=== PATIENT | male | born 1985 | race Caucasian/White ===

== ENCOUNTER 2025-02-08 06:29 | Day surgery (SDC) | payer OTHER ==
[2025-02-08 06:55] LABS: PLATELET COUNT,PLT 223.0 K/uL (130-375); RED BLOOD CELL COUNT 5.15 M/uL (4.14-5.76); WHITE BLOOD CELL COUNT,WBC 6.8 K/uL (3.2-11.0)
[2025-02-08] MEDS: Lactated Ringers 1,000 ML IV SCH (07:03)
[2025-02-08] MEDS ORDERED: Ondansetron 4 MG/2 ML SDV ONE (07:08)
[2025-02-08] MEDS ORDERED: Propofol 200 MG/20 ML SDV ONE (07:08)
[2025-02-08] MEDS ORDERED: Dexamethasone 4 MG/ML SDV ONE (07:08)
[2025-02-08] MEDS ORDERED: Succinylcholine 200 MG/10 ML MDV ONE (07:08)
[2025-02-08] MEDS ORDERED: fentaNYL 250 MCG/5 ML SDV ONE (07:08)
[2025-02-08] MEDS ORDERED: Glycopyrrolate 0.2 MG/ML 5 ML MDV ONE (07:08)
[2025-02-08 07:15] LABS: A/G RATIO 1.2 (1.2-2.2); ALANINE AMINOTRANSFERASE,ALT 74 U/L (12-78); ASPARTATE AMNIOTRANSFERASE,AST 34 U/L (15-37); BILIRUBIN TOTAL 0.6 mg/dL (0.2-1.0); BLOOD UREA NITROGEN,BUN 14 mg/dL (7-18); CARBON DIOXIDE,CO2 31 mmol/L (21-32); CHLORIDE,CL 103 mmol/L (100-108); CREATININE 1.1 mg/dL (0.8-1.3); EST CRCL DRUG DOSING (CG) 97.49 mL/min; ESTIMATED GFR 88 mL/min (>60); GLUCOSE RANDOM 88 mg/dL (74-106); POTASSIUM,K 3.8 mmol/L (3.6-5.2); PROTEIN TOTAL,TP 7.3 g/dL (6.4-8.2); SODIUM,NA 141 mmol/L (140-148)
[2025-02-08] MEDS: metroNIDAZOLE/Normal Saline 500 MG in Premix Bag 1 BAG IV ONE (07:24)
[2025-02-08] MEDS: Bupivacaine 0.5%/EPINEPHrine 1:200,000 50 ML MDV ONE (08:25)
[2025-02-08] MEDS ORDERED: fentaNYL 100 MCG/2 ML SDV ONE (09:03)
[2025-02-08] MEDS ORDERED: Ketorolac 30 MG/ML SDV ONE (09:05)
[2025-02-08] MEDS: Acetaminophen/HYDROcodone 325-5 MG Tab PO ONE (11:13)
== END 2025-02-08 14:00 | disposition home or self-care (01) ==
LOC: JP.SDS 06:29
PROVIDERS: ATTEND Surgery
DX: K40.90 Unilateral inguinal hernia, without obstruction or gangrene, not specified as recurrent (principal); E66.9 Obesity, unspecified
CPT/HCPCS: 00830; 36415; 49505; 64488; 80053; 85027; A9270; C1781; J0171; J0330; J0690; J1100; J1596; J1836; J1885; J2405; J2704; J2710; J2795; J3010; J3490; J7120